=== PATIENT | female | born 1975 | race Caucasian/White ===

== ENCOUNTER 2017-01-22 21:55 | Emergency (ER) | payer OTHER ==
[~2017-01-22 21:55] MED LIST: ACET-1311 PO; ALBUAER19 INH; ALPR-411 PO; ASPI81TA28 PO; JUICE PLUS PO; OXYC-57 PO; SERT-234 PO; TRAM-10 PO; TRIA3AER NAE
[2017-01-22 22:00] VITALS: TEMP 37.1; Ht 154.9 cm
[2017-01-22] MEDS ORDERED: KETOROLAC TROMETHAMINE 30 MG/ML VIAL IV STA (22:08)
[2017-01-22] MEDS ORDERED: ALBUT/IPRATROP 3MG/0.5MG NEB 3 ML VIAL INH STA (22:08)
[2017-01-22] MEDS ORDERED: SODIUM CHLORIDE 0.9% 1000ML 1,000 ML IV STA (22:08)
[2017-01-22] MEDS ORDERED: ALBUTEROL HFA 8 GM INHALER INH STA (22:08)
[2017-01-22] MEDS ORDERED: METOCLOPRAMIDE HCL INJ 5 MG/ML 2 ML VIAL IV STA (22:08)
[2017-01-22] MEDS ORDERED: DiphenhydrAMINE HCL 50 MG/ML VIAL IV STA ×2 (22:08→23:30)
[2017-01-22] MEDS ORDERED: ALUMINUM/MAGNESIUM SUSP 30 ML UDC PO STA (22:12)
[2017-01-22] MEDS ORDERED: LIDOCAINE HCL 2% VISC SOLN 20 ML UDC PO STA (22:12)
[2017-01-22] MEDS ORDERED: DEXAMETHASONE SOD INJ 10 MG/ML VIAL IV ONE (22:15)
[2017-01-22 22:47] LABS: BASO % 0.3 %; BASO ABS # 0.02 K/uL (0-0.2); COMPLETE YES; EOS % 2.1 %; HEMATOCRIT 38.4 % (37-47); IG% 0.3 %; LYMPH % 29.7 %; LYMPH ABS # 1.98 K/uL (1.2-3.4); MEAN CELL VOLUME 78.7 fL (80-100); MEAN CORPUSCULAR HEMOGLOBIN 28.3 pg (25-34); MEAN CORPUSCULAR HGB CONC 35.9 g/dl (32-36); MEAN PLATELET VOLUME 8.8 fL (7.4-10.4); MONO % 10.6 %; PLATELET COUNT 237 K/uL (130-400); RED BLOOD COUNT 4.88 M/uL (4.2-5.4); WHITE BLOOD COUNT 6.67 K/uL (4.8-10.8)
[2017-01-22 23:04] LABS: BLOOD UREA NITROGEN 18 mg/dl (7-18); CARBON DIOXIDE 25 mmol/L (21-32); CHLORIDE 106 mmol/L (98-107); GLUCOSE 92 mg/dl (70-99); POTASSIUM 3.7 mmol/L (3.5-5.1); SODIUM 143 mmol/L (136-145)
[2017-01-22] MEDS ORDERED: VNTHFA/IN INH (23:21)
[2017-01-22] MEDS ORDERED: DOXYCYCLINE HYCLATE 100 MG CAP PO ONE (23:30)
[2017-01-22] MEDS ORDERED: HYCODAN 60ML BOTTLE HOMEPACK PO ONE (23:30)
--- NOTE | 2017-01-22 23:54 | EMERGENCY ROOM VISIT NOTE ---
History First contact with patient: 22:03 Chief Complaint: RESPIRATORY PROBLEMS Stated Complaint: SEVERE ASHMA ATTACK History of Present Illness The patient is a 41 year old female who presents to the Emergency Room with complaints of cough, congestion, wheezing, sore throat, fever, chills, fatigue, LOONEY for the past several days. Patient denies chest pain, neck stiffness, confusion, vomiting, diarrhea, abdominal pain. She is tolerating by mouth fluids and food. Review of Systems See HPI for pertinent positives & negatives. A total of 10 systems reviewed and were otherwise negative. Past Medical/Surgical History asthma, anxiety, depression Social History Smoking Status: Never Smoker Smokeless Tobacco Use: No Drug Use: none Marital Status: Occupation Status: employed Current/Historical Medications Scheduled Sertraline (Zoloft), 100 MG PO DAILY Scheduled PRN Albuterol Hfa (Ventolin Hfa), 2 PUFFS INH Q6H PRN for SOB/Wheezing Alprazolam (Xanax), 0.5 MG PO TID PRN for Anxiety Allergies Coded Allergies: Morphine (Verified Allergy, Intermediate, HIVES, 01/22/17) POLLEN (Verified Allergy, Unknown, 01/22/17) Verapamil (Unverified Allergy, Unknown, SWELLING, 01/22/17) Hydromorphone (Verified Adverse Reaction, Mild, MILD ITCHING CONTROLLED W / BENADRYL, 01/22/17) PT REC'D 2 DOSES OF DILAUDID TODAY IN ER W/ NO REACTION AND STATES THAT SHE REC'D MED BEFORE AND IT HELPED HER. SOMETIMES MED CAUSES MILD ITCHING BUT BENADRYL HELPS WITH THAT. Physical Exam Vital Signs Date Time Temp Pulse Resp B/P Pulse Ox O2 Delivery O2 Flow Rate FiO2 01/22/17 22:00 37.1 94 24 142/92 100 Room Air Physical Exam VITALS: Vitals are noted on the nurse's note and reviewed by myself. Vital signs stable. GENERAL: Pleasant female with audible wheeze, in no acute distress, nondiaphoretic, well-developed well-nourished. SKIN: The skin was without rashes, erythema, edema, or bruising. There is no tenting of the skin. Capillary reflex less than 2 seconds. HEAD: Normocephalic atraumatic. EARS: External auditory canals clear, tympanic membranes pearly phan without erythema or effusion bilaterally. EYES: Pupils equal round and reactive to light and accommodation. Conjunctivae without injection, sclerae without icterus. Extraocular movements intact. NOSE: Patent, turbinates without inflammation or discharge. Bilateral frontal sinus tenderness. MOUTH: Mucous membranes moist. Pharynx without erythema or exudate. Uvula midline. Airway patent. Tongue does not deviate. NECK: Supple without nuchal rigidity. No lymphadenopathy. No thyromegaly. Cervical spine is nontender. No JVD. No meningeal signs HEART: Regular rate and rhythm without murmurs gallops or rubs. LUNGS: Mild diffuse end expiratory Wheezes, without rales or rhonchi. No dullness to percussion. No retractions or accessory muscle use. ABDOMEN: Positive bowel sounds x 4. Normal tympanic percussion. Soft, nontender, without masses or organomegaly. Calderón sign negative. No guarding or rebound tenderness. MUSCULOSKELETAL: No muscle atrophy, erythema, or edema noted. NEURO: Patient was alert and oriented to person place and time. Normal sensation to light and sharp touch. No focal neurological deficits. Medical Decision & Procedures Laboratory Results 01/22/17 22:38 Red Blood Count 4.88, Mean Corpuscular Volume 78.7, Mean Corpuscular Hemoglobin 28.3, Mean Corpuscular Hemoglobin Concent 35.9, Mean Platelet Volume 8.8, Neutrophils (%) (Auto) 57.0, Lymphocytes (%) (Auto) 29.7, Monocytes (%) (Auto) 10.6, Eosinophils (%) (Auto) 2.1, Basophils (%) (Auto) 0.3, Neutrophils # (Auto ) 3.80, Lymphocytes # (Auto) 1.98, Monocytes # (Auto) 0.71, Eosinophils # (Auto ) 0.14, Basophils # (Auto) 0.02 01/22/17 22:38 Test 01/22/17 22:38 White Blood Count 6.67 K/uL (4.8-10.8) Red Blood Count 4.88 M/uL (4.2-5.4) Hemoglobin 13.8 g/dL (12.0-16.0) Hematocrit 38.4 % (37-47) Mean Corpuscular Volume 78.7 fL (80-100) Mean Corpuscular Hemoglobin 28.3 pg (25-34) Mean Corpuscular Hemoglobin Concent 35.9 g/dl (32-36) Platelet Count 237 K/uL (130-400) Mean Platelet Volume 8.8 fL (7.4-10.4) Neutrophils (%) (Auto) 57.0 % Lymphocytes (%) (Auto) 29.7 % Monocytes (%) (Auto) 10.6 % Eosinophils (%) (Auto) 2.1 % Basophils (%) (Auto) 0.3 % Neutrophils # (Auto) 3.80 K/uL (1.4-6.5) Lymphocytes # (Auto) 1.98 K/uL (1.2-3.4) Monocytes # (Auto) 0.71 K/uL (0.11-0.59) Eosinophils # (Auto) 0.14 K/uL (0-0.5) Basophils # (Auto) 0.02 K/uL (0-0.2) RDW Standard Deviation 38.8 fL (36.4-46.3) RDW Coefficient of Variation 13.7 % (11.5-14.5) Immature Granulocyte % (Auto) 0.3 % Immature Granulocyte # (Auto) 0.02 K/uL (0.00-0.02) Anion Gap 12.0 mmol/L (3-11) Estimated GFR () 72.2 Estimated GFR (Non- 62.3 BUN/Creatinine Ratio 16.0 (10-20) Calcium Level 9.0 mg/dl (8.5-10.1) ED Course Prior records/ancillary studies reviewed. Triage Nursing notes reviewed. Additional history obtained from family. The patient's history was concerning for a cough, congestion, wheeze, sore throat. Differential diagnosis: Etiologies such as RAD, sinusitis, viral syndrome, tonsillitis, streptococcal pharyngitis, mononucleosis, peritonsillar abscess, retropharyngeal abscess, otitis, pneumonia, influenza, as well as others were entertained. ER treatment provided: Prednisone, albuterol, nebulizer, Toradol, IV fluids, doxycycline On reassessment the patient felt better. Diagnostics interpreted by me: The labs revealed no worrisome leukocytosis. Negative strep test Imaging studies: Chest x-ray concerning for possible developing right lower lobe pneumonia This appears to be consistent with pneumonia. Patient started on antibiotics. She is wheezing. She is given steroids. Patient is afebrile and nontoxic. Stable vital signs. She was advised take medications as directed and to follow- up family care in a few days or here in the ER sooner for high fevers, lethargy , vomiting, worsening signs or symptoms or as needed. By the evaluation outlined above emergent etiologies such as peritonsillar abscess, retropharyngeal abscess, otitis, pneumonia, meningitis, urinary tract infection , sepsis, bacteremia, as well as others were deemed relatively unlikely. The pt informed about the findings as listed above. All questions were answered and pleased with the treatment. Return instructions were outlined and the patient was discharged in stable condition. Outpatient prescription management: prednisone, doxycycline Referral: The patient was referred back to their primary care physician for follow-up in 2 to 3 days for a recheck of the current condition. Medical Decision as above Impression Primary Impression: Pneumonia Additional Impression: Asthma exacerbation Departure Information Dispostion Home / Self-Care Condition GOOD Referrals Guillermo Zapata III, CRNP (PCP) Patient Instructions [facility] Additional Instructions DO NOT drive, drink alcohol, operate machinery, or perform dangerous activities today. You were given medications in the ER that can affect your ability to safely function or operate a vehicle. Albuterol Inhaler: Take 2 puffs four times daily for five days, then as needed. Prednisone 50mg: Once daily until the prescription is finished. It is best to take this earlier in the day as some patients note occasional difficulty falling asleep when taken in the late evening. Doxycycline 100mg: Take one pill twice daily for seven days for your infection. Take with food, but avoid dairy. Avoid prolonged sun exposure since this medication makes you temporarily more susceptible to sunburns. All antibiotics can cause diarrhea. If this occurs and you feel worse or it does not resolve in 1-2 days follow up with your doctor or return to the Emergency Department as this could be signs of serious underlying problems. Any medication can cause an allergic reaction, stop the pills immediately and return to the ER for rash, hives, breathing difficulties, or swelling. Acetaminophen(Tylenol) may be used for fever or pain. Use 1000mg every six hours as needed. Avoid using more than 3000mg in a 24 hour period. AND/OR Ibuprofen(Motrin, Advil) may be used for fever or pain. Use 600mg every six hours as needed. Take with food. Avoid using more than 2400mg in a 24 hour period. Do not use 2400mg per day for more than three consecutive days without physician direction. Prolonged inappropriate use can lead to stomach upset or ulcers. Hycodan cough syrup: use one teaspoon every six hours only as needed for severe cough. It is best for use at night since it will cause sedation. This is a narcotic medication. Avoid alcohol, operating machinery or dangerous equipment, working on ladders or roofs, DRIVING, or situations where being under the influence may be dangerous. It is recommended to use an over-the- counter stool softener such as Colace, 100mg twice daily while taking this medication to avoid constipation. Controlling your fever with Tylenol and Ibuprofen as above will make you feel better. Rest and drink plenty of fluids. Avoid strenuous activity until your symptoms resolve and your breathing returns to normal. Continue current medications. Return to the ER for chest pain, difficulty breathing, persistent fevers, vomiting, worsening of your condition, or as needed. Follow-up with family care in 2-3 days. Problem Qualifiers Primary Impression: Pneumonia Pneumonia type: due to unspecified organism Laterality: right Lung location : lower lobe of lung Qualified Codes: J18.1 - Lobar pneumonia, unspecified organism
[2017-01-22] MEDS ORDERED: HYDR5SYP11 PO (23:56)
[2017-01-22] MEDS ORDERED: DOXY100C2 PO (23:56)
[2017-01-22] MEDS ORDERED: PRED50TA PO (23:56)
[2017-01-22] MEDS ORDERED: ALBINS/ INH (23:56)
[2017-01-23 00:15] VITALS: BP 133/88; PULSE 86; O2SAT 97
--- NOTE | 2017-01-23 06:42 | DIAGNOSTIC IMAGING REPORT ---
CHEST 2 VIEWS ROUTINE CLINICAL HISTORY: cough/fever dyspnea COMPARISON STUDY: 02/18/2010 FINDINGS: The bones soft tissues and hemidiaphragms are normal. The cardiomediastinal silhouette is normal. The lungs are clear. The pulmonary vasculature is normal. IMPRESSION: Negative chest. Electronically signed by: Sujit Kimbrough M.D. 01/23/2017 6:40 AM Dictated Date/Time: 01/23/2017 6:40 AM
== END 2017-01-23 00:15 | disposition home or self-care (01) ==
LOC: C.EDB 21:56
DX: J18.1 Lobar pneumonia, unspecified organism (principal); J45.901 Unspecified asthma with (acute) exacerbation; F41.9 Anxiety disorder, unspecified; F32.9 Major depressive disorder, single episode, unspecified; Z79.899 Other long term (current) drug therapy

== ENCOUNTER → 2017-01-26 | Outpatient (CLI) | payer OTHER ==
[~2017-01-26] MED LIST changes: -ACET-1311 PO; +ALBINS/ INH; -ALBUAER19 INH; -ASPI81TA28 PO; +DOXY100C2 PO; +HYDR5SYP11 PO; -JUICE PLUS PO; +PRED50TA PO; -TRAM-10 PO; -TRIA3AER NAE; +VNTHFA/IN INH
--- NOTE | 2017-01-26 12:07 | DIAGNOSTIC IMAGING REPORT ---
TWO VIEW CHEST CLINICAL HISTORY: Continued acquired pneumonia. FINDINGS: PA and lateral chest radiographs are compared to study dated 01/22/2017. The examination is degraded by large body habitus. The cardiomediastinal silhouette is unremarkable. The lungs and pleural spaces are clear. There is no pneumothorax. The bony thorax appears intact. Postoperative change is noted in the right shoulder. Calcific tendinopathy is seen in both shoulders. IMPRESSION: No active disease in the chest. Electronically signed by: Josue Colbert M.D. 01/26/2017 12:05 PM Dictated Date/Time: 01/26/2017 12:04 PM
[2017-01-26 13:16] LABS: BASO % 0.2 %; BASO ABS # 0.02 K/uL (0-0.2); COMPLETE YES; EOS % 0.2 %; HEMATOCRIT 37.9 % (37-47); IG% 1.1 %; LYMPH % 22.4 %; LYMPH ABS # 2.58 K/uL (1.2-3.4); MEAN CELL VOLUME 84.2 fL (80-100); MEAN CORPUSCULAR HEMOGLOBIN 27.8 pg (25-34); MEAN PLATELET VOLUME 8.7 fL (7.4-10.4); MONO % 4.9 %; NEUT % 71.2 %; PLATELET COUNT 265 K/uL (130-400); WHITE BLOOD COUNT 11.52 K/uL (4.8-10.8)
[2017-01-26 13:56] LABS: CALCIUM 8.7 mg/dl (8.5-10.1)
[2017-01-26 13:59] LABS: BLOOD UREA NITROGEN 13 mg/dl (7-18); BUN/CREATININE RATIO 13.4 (10-20); CARBON DIOXIDE 27 mmol/L (21-32); CHLORIDE 107 mmol/L (98-107); GLUCOSE 107 mg/dl (70-99); POTASSIUM 3.3 mmol/L (3.5-5.1); SODIUM 141 mmol/L (136-145)
== END | disposition home or self-care (01) ==
LOC: C.RAD1850 11:42
PROVIDERS: ATTEND Nurse Practitioner Family
DX: J18.9 Pneumonia, unspecified organism (principal)

== ENCOUNTER 2017-03-27 13:16 | Emergency (ER) | payer OTHER ==
[~2017-03-27 13:16] MED LIST changes: -HYDR5SYP11 PO; -OXYC-57 PO; -PRED50TA PO
[2017-03-27 13:20] VITALS: TEMP 36.8; Ht 154.9 cm
--- NOTE | 2017-03-27 14:19 | DIAGNOSTIC IMAGING REPORT ---
LEFT FOOT 3 VIEWS CLINICAL HISTORY: Fall with left foot pain. FINDINGS: 3 views of the left foot are obtained. No prior studies are available for comparison at the time of dictation. The skeletal structures are well mineralized. No fracture is seen. The joint spaces of the foot are well-maintained. The overlying soft tissues are within normal limits. A plantar calcaneal enthesophyte is observed. IMPRESSION: No acute bony abnormality is seen in the left foot. Electronically signed by: Josue Colbert M.D. 03/27/2017 2:17 PM Dictated Date/Time: 03/27/2017 2:16 PM
[2017-03-27] MEDS ORDERED: IBUPROFEN 600 MG TAB PO STA (14:23)
--- NOTE | 2017-03-27 14:24 | DIAGNOSTIC IMAGING REPORT ---
LEFT ANKLE 3 VIEWS HISTORY: Fall, foot/ankle pain COMPARISON: None. FINDINGS: Small plantar heel spur. No acute fracture or dislocation. Mild soft tissue swelling. No radiopaque foreign bodies. IMPRESSION: No acute fracture or dislocation within the left ankle. Electronically signed by: Wes Galvan M.D. 03/27/2017 2:22 PM Dictated Date/Time: 03/27/2017 2:20 PM
--- NOTE | 2017-03-27 15:09 | EMERGENCY ROOM VISIT NOTE ---
History First contact with patient: 13:43 Chief Complaint: FALL Stated Complaint: FELL-LEFT FOOT PAIN IN HEEL History of Present Illness The patient is a 41 year old female who presents to the Emergency Room via private vehicle with complaints of "fall, left foot pain and he'll". The patient states that earlier today she was in a house around noon time, and while walking up into the kitchen there was a small platform of which she accidentally tripped upon. She states that she struck the middle portion of her left foot/heel off of the small ledge. Since then she has had difficulty weightbearing, and is concerned that this is a worsening of her plantar fasciitis. She is to see a specialist, but has yet to do so. She also notes when she fell she twisted her back slightly. She is concerned about her left foot, and rates the pain as a 7/10. With weightbearing the pain as a 10/10. She rates the pain as sharp and burning in nature. She denies striking her head or loss of consciousness. Review of Systems A complete 10-point Review of Systems was discussed with the patient, with pertinent positives and negatives listed in the History of Present Illness. All remaining Review of Systems questions can be considered negative unless otherwise specified. Past Medical/Surgical History No pertinent at this time. Family History No pertinent family history. Social History Smoking Status: Never Smoker Drug Use: none Marital Status: Occupation Status: employed Social History: Patient is currently employed. Current/Historical Medications Scheduled Albuterol Sulf (Proventil 0.083% 2.5MG/3ML), 2.5 MG INH QID Doxycycline Hyclate (Vibramycin), 100 MG PO BID Sertraline (Zoloft), 100 MG PO DAILY Scheduled PRN Albuterol Hfa (Ventolin Hfa), 2 PUFFS INH Q6H PRN for SOB/Wheezing Alprazolam (Xanax), 0.5 MG PO TID PRN for Anxiety Oxycodone/Acetaminophen 5MG/325MG (Percocet 5MG/325MG), 1-2 TABS PO Q6 PRN for Pain Allergies Coded Allergies: Morphine (Verified Allergy, Intermediate, HIVES, 01/22/17) POLLEN (Verified Allergy, Unknown, 01/22/17) Verapamil (Unverified Allergy, Unknown, SWELLING, 01/22/17) Hydromorphone (Verified Adverse Reaction, Mild, MILD ITCHING CONTROLLED W / BENADRYL, 01/22/17) PT REC'D 2 DOSES OF DILAUDID TODAY IN ER W/ NO REACTION AND STATES THAT SHE REC'D MED BEFORE AND IT HELPED HER. SOMETIMES MED CAUSES MILD ITCHING BUT BENADRYL HELPS WITH THAT. Physical Exam Vital Signs Date Time Temp Pulse Resp B/P (MAP) Pulse Ox O2 Delivery O2 Flow Rate FiO2 03/27/17 15:16 78 16 157/97 97 03/27/17 13:20 36.8 85 20 165/96 98 Room Air Physical Exam VITAL SIGNS - Vital signs and nursing notes were reviewed. Afebrile, hypertensive at 165/96, non-tachycardic and is saturating well on room air 98%. GENERAL -41-year-old female appearing her stated age who is in no acute distress. Communicates well with provider and answers questions appropriately. SKIN - Without rashes. Skin overlying the left foot is unremarkable. The integument is intact. HEAD - NC/AT. NECK - Neck with FROM. Supple to palpation. No Cspine tenderness. LUNGS - Chest wall symmetric without accessory muscle use, intercostals retractions, or central cyanosis. Normal vesicular breath sounds CTA B/L. No wheezes, rales, or rhonchi appreciated. CARDIAC - RRR with S1/S2. No murmur, rubs, or gallops appreciated. EXTREMITIES - No clubbing or peripheral cyanosis. No pretibial edema present. +5 /5 strength noted in UE/LE bilaterally. She is neurovascularly intact in the left lower extremity. There is tenderness to the inferior ankle and foot joint. This is most pronounced at the posterior plantar fascia region. Full range of motion in this region. Medical Decision & Procedures ER Provider Diagnostic Interpretation: LEFT ANKLE 3 VIEWS HISTORY: Fall, foot/ankle pain COMPARISON: None. FINDINGS: Small plantar heel spur. No acute fracture or dislocation. Mild soft tissue swelling. No radiopaque foreign bodies. IMPRESSION: No acute fracture or dislocation within the left ankle. Electronically signed by: Wes Galvan M.D. 03/27/2017 2:22 PM Dictated Date/Time: 03/27/2017 2:20 PM LEFT FOOT 3 VIEWS CLINICAL HISTORY: Fall with left foot pain. FINDINGS: 3 views of the left foot are obtained. No prior studies are available for comparison at the time of dictation. The skeletal structures are well mineralized. No fracture is seen. The joint spaces of the foot are well-maintained. The overlying soft tissues are within normal limits. A plantar calcaneal enthesophyte is observed. IMPRESSION: No acute bony abnormality is seen in the left foot. Electronically signed by: Josue Colbert M.D. 03/27/2017 2:17 PM Dictated Date/Time: 03/27/2017 2:16 PM Medications Administered Medications (Trade) Dose Ordered Sig/Wilmer Route Start Time Stop Time Status Last Admin Dose Admin Ibuprofen (Motrin Tab) 600 mg NOW STAT PO 03/27/17 14:23 03/27/17 14:24 DC 03/27/17 14:32 600 MG Medical Decision Patient was seen and evaluated as above. After obtaining a thorough history and physical examination radiographs were obtained of the affected joint. Results as above. She declined strong pain medication, therefore was given a small amount of ibuprofen. This was 600 mg by mouth. Ice was also provided. No acute fracture or dislocation noted. I suspect the patient is likely exacerbated her underlying plantar fasciitis. I do not suspect any emergent fracture. However, a small underlying occult fracture cannot be ruled out, and after discussing different modalities of splinting the decision was made to place her in a walking boot. This was because I felt she was a higher fall risk with crutches of which was discussed with her. She is to follow-up with orthopedics regarding her injury. She was provided a short-term prescription for at home. She was educated upon worrisome symptoms which to return, had questions prior to discharge, and was discharged home in good condition. In the evaluation and treatment of this patient, the following differential diagnoses were considered: Ankle Fracture, Ankle Sprain, Distal Fibula Fracture , Distal Tibia Fracture, Foot Fracture, [place] Fracture. [place] Drug Monitoring Program Search Results: patient reviewed within database, no issues identified Impression Primary Impression: Fall Additional Impression: Foot pain, left Departure Information Dispostion Home / Self-Care Condition GOOD Prescriptions Oxycodone/Acetaminophen 5MG/325MG (PERCOCET 5MG/325MG) Tab 1-2 TABS PO Q6 Y for Pain, #20 TAB For Initial Treatment Prov: Randal Mendez PA-C 03/27/17 Referrals Guillermo Zapata III, CRNP (PCP) Raj Stiles D.O. Patient Instructions My [facility] Additional Instructions You have been treated in the Emergency Department for a left foot pain/injury. You have been prescribed Percocet to be used for pain control. This is a narcotic medication. You cannot drive or consume alcohol while on this medicine. This medicine should only be used for pain that cannot be controlled with [id number] pain medicines. For pain control, you can use the following [id number] medicines: - Regular strength (325mg/tab) Tylenol (acetaminophen) 2 tabs every 4-6 hours as needed. Do not exceed 12 tablets in a 24 hour period. Avoid taking more than 3 grams (3000 mg) of Tylenol per day. This includes any other sources of acetaminophen you may take on a regular basis. - Regular strength (200 mg/tab) Advil (ibuprofen) 1-2 tabs every 4-6 hours as needed. Do not exceed a dose of 3200 mg per day. If this is a recent injury (<24 hrs), ice can be applied to the area of pain for the first 3 days to help decrease pain and inflammation. You have been provided the number for an Orthopaedic Surgeon. You should call this number as soon as possible to establish a follow-up visit from today's Emergency Department visit. Keep the ankle brace/splint in place until cleared by Orthopedics. Please try to keep ALL weight off of the foot until weight bearing is tolerable. Return to the Emergency Department if your current symptoms worsen despite treatment course outlined above, or if you develop any of the following symptoms : intractable pain despite aforementioned treatment course or new onset of numbness or tingling of the foot. Problem Qualifiers
[2017-03-27 15:16] VITALS: BP 157/97; PULSE 78; O2SAT 97
[2017-03-27] MEDS ORDERED: OXYC-57 PO (15:16)
== END 2017-03-27 15:53 | disposition home or self-care (01) ==
LOC: C.EDB 13:20 → C.EDD 15:53
DX: M79.672 Pain in left foot (principal); W01.0XXA Fall on same level from slipping, tripping and stumbling without subsequent striking against object, initial encounter; Y92.010 Kitchen of single-family (private) house as the place of occurrence of the external cause; Z79.899 Other long term (current) drug therapy

== ENCOUNTER → 2017-12-09 | Outpatient (CLI) | payer OTHER ==
[~2017-12-09] MED LIST changes: -ALBINS/ INH
[2017-12-09 10:34] LABS: BASO % 0.2 %; BASO ABS # 0.01 K/uL (0-0.2); EOS % 3.1 %; EOS ABS # 0.18 K/uL (0-0.5); HEMATOCRIT 39.9 % (37-47); HEMOGLOBIN 13.8 g/dL (12.0-16.0); IG# 0.02 K/uL (0.00-0.02); LYMPH % 34.4 %; LYMPH ABS # 1.98 K/uL (1.2-3.4); MEAN CELL VOLUME 80.9 fL (80-100); MEAN CORPUSCULAR HGB CONC 34.6 g/dl (32-36); MEAN PLATELET VOLUME 9.3 fL (7.4-10.4); MONO % 8.5 %; MONO ABS # 0.49 K/uL (0.11-0.59); NEUT % 53.5 %; NEUT ABS # 3.08 K/uL (1.4-6.5); PLATELET COUNT 215 K/uL (130-400); RED CELL DISTRIBUTION WIDTH CV 14.1 % (11.5-14.5); RED CELL DISTRIBUTION WIDTH SD 41.7 fL (36.4-46.3); WHITE BLOOD COUNT 5.76 K/uL (4.8-10.8)
[2017-12-09 10:47] LABS: ALBUMIN 3.8 gm/dl (3.4-5.0); ALT/SGPT 22 U/L (12-78); BLOOD UREA NITROGEN 14 mg/dl (7-18); CALCIUM 8.3 mg/dl (8.5-10.1); CARBON DIOXIDE 25 mmol/L (21-32); CHOLESTEROL 142 mg/dl (0-200); CREATININE 0.75 mg/dl (0.60-1.20); GLUCOSE 85 mg/dl (70-99); SODIUM 138 mmol/L (136-145)
[2017-12-09 10:57] LABS: ALKALINE PHOSPHATASE 75 U/L (45-117); AST/SGOT 13 U/L (15-37); LDL CHOLESTEROL CALCULATED 92 mg/dl; TOTAL PROTEIN 7.2 gm/dl (6.4-8.2)
[2017-12-09 11:01] LABS: HEMOGLOBIN A1C 5.2 % (4.5-5.6)
== END | disposition home or self-care (01) ==
LOC: C.LAB1850 09:44
PROVIDERS: ATTEND Nurse Practitioner Family
DX: J45.909 Unspecified asthma, uncomplicated (principal); R73.01 Impaired fasting glucose; E04.0 Nontoxic diffuse goiter; E78.5 Hyperlipidemia, unspecified

== ENCOUNTER → 2018-04-27 | Outpatient (CLI) | payer OTHER ==
[~2018-04-27] MED LIST changes: -DOXY100C2 PO; +LIDO1PAD2 TD; +MONT1TAB3 PO
--- NOTE | 2018-04-27 08:10 | DIAGNOSTIC IMAGING REPORT ---
(SPLEEN) ABD LTD CLINICAL HISTORY: 42 years-old Female presenting with R16.1 Splenomegaly. TECHNIQUE: Real-time grayscale ultrasound imaging of the left upper quadrant was performed. COMPARISON: CT from 04/09/2018. FINDINGS: The spleen is normal in echogenicity though slightly enlarged, measuring 13.7 cm in maximal sagittal dimension. On prior CT, maximal sagittal dimension was 11.4 when remeasured at a comparable level. No free fluid. IMPRESSION: 1. Borderline splenomegaly. Follow-up ultrasound in one to 2 months could be obtained if there is clinical concern. Electronically signed by: Zia Hayes M.D. 04/27/2018 8:08 AM Dictated Date/Time: 04/27/2018 8:06 AM
== END | disposition home or self-care (01) ==
LOC: C.ULTR 07:42
PROVIDERS: ATTEND Nurse Practitioner Family
DX: R16.1 Splenomegaly, not elsewhere classified (principal)